=== PATIENT | female | born 1990 | race Caucasian/White ===

== ENCOUNTER 2017-05-20 10:48 | Inpatient (IN) | payer OTHER ==
[2017-05-20] MEDS ORDERED: IBUPROFEN 600 MG TAB PO ×2 (11:00→21:00)
[2017-05-20] MEDS ORDERED: AMPICILLIN 2 GM/NS (PMX) 100 ML IV (11:00)
[2017-05-20] MEDS ORDERED: CARBOPROST 250 MCG INJ IM ×2 (11:00→21:00)
[2017-05-20] MEDS ORDERED: OXYTOCIN 30 UNITS/LR 500 ML IV ×4 (11:00→21:00)
[2017-05-20] MEDS ORDERED: LIDOCAINE 1% (MPF) 30 ML INJ INJ (11:00)
[2017-05-20] MEDS ORDERED: METHYLERGONOVINE 0.2 MG INJ IM ×2 (11:00→21:00)
[2017-05-20] MEDS ORDERED: MISOPROSTOL 200 MCG TAB PR ×2 (11:00→21:00)
[2017-05-20] MEDS ORDERED: BUTORPHANOL 2 MG INJ IV (11:00)
[2017-05-20 11:22] LABS: ADD MAN DIFF? NO
[2017-05-20 11:27] LABS: WHITE BLOOD COUNT 9.9 10^3/ul (4.8-10.8)
[2017-05-20 11:27] LABS: BASOPHILS % 0.3 % (0.0-2.0); EOSINOPHILS % 0.4 % (0.0-7.0); HEMATOCRIT 38.2 % (37.0-47.0); HEMOGLOBIN 12.6 g/dl (12.0-16.0); LYMPHOCYTES # 1.4 10^3/ul (0.8-2.9); LYMPHOCYTES % 14.3 % (15.0-51.0); MEAN CORPUSCULAR VOLUME 84.9 fl (82.0-101.0); MEAN PLATELET VOLUME 12.5 fl (7.4-10.4); MONOCYTE # 0.5 10^3/ul (0.3-0.9); MONOCYTES % 5.2 % (0.0-11.0); NEUTROPHIL # 7.8 10^3/ul (1.6-7.5); NEUTROPHILS % 79.4 % (39.0-77.0); PLATELET COUNT 151 10^3/UL (140-415); RED CELL DISTRIBUTION WIDTH 14.6 % (11.5-14.5)
[2017-05-20] MEDS ORDERED: FENTAnyl 2MCG/ML-ROPIV 0.2% 100 ML (11:37)
[2017-05-20 11:50] LABS: PROTIME 12.2 Sec (11.9-14.9)
[2017-05-20 11:51] LABS: PARTIAL THROMBOPLASTIN TIME 25.6 Sec (25.0-35.0)
[2017-05-20] MEDS: LACTATED RINGER'S 1,000 ML IV ×3 (12:00→21:00)
[2017-05-20] MEDS ORDERED: DIPHENHYDRAMINE 50 MG INJ IV ×2 (12:00→16:30)
[2017-05-20] MEDS ORDERED: ONDANSETRON 4 MG INJ IV ×2 (12:00→16:30)
[2017-05-20] MEDS ORDERED: NALOXONE (0.4 MG/ML) INJ IV ×2 (12:00→16:30)
[2017-05-20] MEDS ORDERED: LACTATED RINGER'S 1,000 ML IV (12:00)
[2017-05-20] MEDS ORDERED: FENTAnyl 2MCG/ML-ROPIV 0.2% 100 ML BAG EPI (12:00)
[2017-05-20 13:30] LABS: HEPATITIS B SURFACE ANTIGEN NEGATIVE (NEGATIVE)
[2017-05-20] MEDS ORDERED: LIDOCAINE 1.5%/EPI MPF (SDV) 30 ML VIAL (14:35)
[2017-05-20] MEDS ORDERED: FENTAnyl 50 MCG/ML VIAL (14:36)
[2017-05-20] MEDS ORDERED: PHENYLephrine (100 MCG/ML) 5ML SYG (14:42)
[2017-05-20] MEDS ORDERED: morphine SULFATE/PF (10 MG/10 ML) INJ (14:44)
[2017-05-20] MEDS ORDERED: DEXAMETHASONE 4 MG/ML 1 ML INJ (14:56)
[2017-05-20] MEDS ORDERED: AMPICILLIN 1 GM/NS (PMX) 50 ML IV (15:00)
[2017-05-20] MEDS ORDERED: ROPIVACAINE 0.5 % 30 ML VIAL (15:51)
[2017-05-20] MEDS ORDERED: morphine 2 MG INJ IV ×2 (16:30)
[2017-05-20] MEDS ORDERED: ZOLPIDEM 5 MG TAB PO (16:30)
[2017-05-20] MEDS: OXYTOCIN 30 UNITS/LR 500 ML IV ×2 (17:57→21:08)
[2017-05-20] MEDS: KETOROLAC 30 MG INJ IV (19:13)
[2017-05-20] MEDS: CEFAZOLIN 2 GM/50 ML (PMX) 50 ML IV (19:52)
[2017-05-20 20:39] LABS: RAPID PLASMA REAGIN NONREACTIVE (NR)
[2017-05-20] MEDS ORDERED: NA PHOSPHATE/BIPHOS 133 ML ENEMA PR (21:00)
[2017-05-20] MEDS ORDERED: OXYCODONE/ACETAMINOPHEN (5/325) TAB PO (21:00)
[2017-05-20] MEDS ORDERED: METHYLERGONOVINE 0.2 MG TAB PO (21:00)
[2017-05-20] MEDS ORDERED: ACETAMINOPHEN 500 MG TAB PO (21:00)
[2017-05-20] MEDS: LANOLIN 7 GM TUBE TOP (23:33)
[2017-05-20] MEDS: DIPHENHYDRAMINE 50 MG INJ IV (23:33)
[2017-05-21] MEDS: KETOROLAC 30 MG INJ IV ×3 (02:33→15:40)
[2017-05-21] MEDS: LACTATED RINGER'S 1,000 ML IV ×2 (02:57→06:43)
[2017-05-21 11:10] LABS: ADD MAN DIFF? NO
[2017-05-21 11:22] LABS: BASOPHILS % 0.2 % (0.0-2.0); EOSINOPHILS # 0.1 10^3/ul (0.0-0.5); EOSINOPHILS % 0.7 % (0.0-7.0); HEMATOCRIT 31.1 % (37.0-47.0); HEMOGLOBIN 10.2 g/dl (12.0-16.0); LYMPHOCYTES # 1.8 10^3/ul (0.8-2.9); LYMPHOCYTES % 18.5 % (15.0-51.0); MEAN CORPUSCULAR HGB CONC 32.8 g/dl (32.0-37.0); MEAN CORPUSCULAR VOLUME 85.4 fl (82.0-101.0); MEAN PLATELET VOLUME 12.7 fl (7.4-10.4); MONOCYTE # 0.8 10^3/ul (0.3-0.9); MONOCYTES % 7.9 % (0.0-11.0); NEUTROPHIL # 7.1 10^3/ul (1.6-7.5); NEUTROPHILS % 72.5 % (39.0-77.0); PLATELET COUNT 119 10^3/UL (140-415); RED BLOOD COUNT 3.64 10^6/ul (4.20-5.40); RED CELL DISTRIBUTION WIDTH 14.8 % (11.5-14.5)
[2017-05-21 11:22] LABS: WHITE BLOOD COUNT 9.8 10^3/ul (4.8-10.8)
[2017-05-21] MEDS: OXYCODONE/ACETAMINOPHEN (5/325) TAB PO (20:23)
[2017-05-21] MEDS: IBUPROFEN 800 MG TAB PO (21:39)
[2017-05-21] MEDS: GUAIFENESIN/DM 5ML CUP PO (21:39)
[2017-05-21] MEDS: HYDROCODONE/APAP (5/325) TAB PO (22:00)
[2017-05-22] MEDS: OXYCODONE/ACETAMINOPHEN (5/325) TAB PO ×2 (00:06→11:32)
[2017-05-22] MEDS: GUAIFENESIN/DM 5ML CUP PO ×3 (05:31→21:18)
[2017-05-22] MEDS: HYDROCODONE/APAP (5/325) TAB PO ×3 (05:31→21:18)
[2017-05-22] MEDS: IBUPROFEN 800 MG TAB PO ×3 (05:32→21:23)
[2017-05-22] MEDS: KETOROLAC 15 MG INJ IM (21:18)
[2017-05-22] MEDS: MAGNESIUM HYDROXIDE 30ML CUP PO (21:18)
[2017-05-23] MEDS: OXYCODONE/ACETAMINOPHEN (5/325) TAB PO ×2 (00:10→03:59)
[2017-05-23] MEDS: HYDROCODONE/APAP (5/325) TAB PO (06:00)
[2017-05-23] MEDS: GUAIFENESIN/DM 5ML CUP PO (06:38)
[2017-05-23] MEDS: IBUPROFEN 800 MG TAB PO ×2 (06:38→13:37)
[2017-05-23] MEDS: INFLUENZA VIRUS VACCINE 0.5 ML (DISPENSING) IM* (08:17)
[2017-05-23] MEDS: DIPHTH/TET/ACEL PERTUSS (ADULT) 0.5 ML VIAL IM* (09:00)
[2017-05-23] MEDS: BISACODYL 10 MG SUPP PR (10:00)
== END 2017-05-23 16:20 | disposition home or self-care (01) | DRG 766 ==
LOC: OBT 10:48 → L-D 10:49 → OBT 11:02 → L-D 10:53 → PP1 20:43
PROVIDERS: Obstetrics & Gynecology
PROC: 10D00Z1 Extraction of Products of Conception, Low, Open Approach (ICD-10-PCS; principal; 2017-05-20)
PROC: 3E033VJ Introduction of Other Hormone into Peripheral Vein, Percutaneous Approach (ICD-10-PCS; 2017-05-20)
DX: O32.1XX0 Maternal care for breech presentation, not applicable or unspecified (principal); Z3A.39 39 weeks gestation of pregnancy; Z37.0 Single live birth
CPT/HCPCS: 62319; 76815; 85025; 85610; 85730; 86592; 86850; 86900; 86901; 87340; 99464